=== PATIENT | male | born 1980 | race Caucasian/White ===

== ENCOUNTER 2017-05-22 09:16 | Emergency (ER) | payer BC ==
[2017-05-22] MEDS ORDERED: DEXAMETHASONE SOD PHOS INJ 10 MG/1 ML VIAL IM ONE (09:51)
--- NOTE | 2017-05-22 09:58 | ER Document Report ---
ED General - General Chief Complaint: Sore Throat Stated Complaint: DIFFICULTY SWALLOWING Time Seen by Provider: 05/22/17 09:36 Mode of Arrival: Ambulatory Information source: Patient Notes: 37 yr old male with hx of previous uvulitis presents with complaints of his uvula being swollen. Patient notes he woke this morning and noted that he was gagging on the uvula Patient denies any fevers or chills denies any difficulty breathing TRAVEL OUTSIDE OF THE [place] IN LAST 30 DAYS: No - HPI Onset: This morning Onset/Duration: Sudden Quality of pain: No pain Severity: Mild Pain Level: Denies Associated symptoms: Nausea, Vomiting - Only when his uvula goes backward Exacerbated by: Denies Relieved by: Denies Similar symptoms previously: Yes Recently seen / treated by doctor: Yes - Related Data Allergies/Adverse Reactions: No Known Allergies Allergy (Unverified 05/22/17 09:29) Past Medical History - Social History Smoking Status: Never Smoker Cigarette use (# per day): No Chew tobacco use (# tins/day): Yes Smoking Education Provided: No Frequency of alcohol use: Social Drug Abuse: None Family History: Reviewed & Not Pertinent Renal/ Medical History: Denies: Hx Peritoneal Dialysis Surgical Hx: Negative Review of Systems - Review of Systems Notes: REVIEW OF SYSTEMS: CONSTITUTIONAL : Denies fever, chills, or sweats. Denies recent illness. EENT: Admits to difficulty swallowing CARDIOVASCULAR: Denies chest pain. Denies palpitations or racing or irregular heart beat. Denies ankle edema. RESPIRATORY: Denies cough, cold, or chest congestion. Denies shortness of breath, difficulty breathing, or wheezing. GASTROINTESTINAL: Denies abdominal pain or distention. Denies nausea, vomiting , or diarrhea. Denies blood in vomitus, stools, or per rectum. Denies black, tarry stools. Denies constipation. GENITOURINARY: Denies difficulty urinating, painful urination, burning, frequency, blood in urine, or discharge. MUSCULOSKELETAL: Denies back or neck pain or stiffness. Denies joint pain or swelling. SKIN: Denies rash, lesions or sores. HEMATOLOGIC : Denies easy bruising or bleeding. LYMPHATIC: Denies swollen, enlarged glands. NEUROLOGICAL: Denies confusion or altered mental status. Denies passing out or loss of consciousness. Denies dizziness or lightheadedness. Denies headache. Denies weakness or paralysis or loss of use of either side. Denies problems with gait or speech. Denies sensory loss, numbness, or tingling. Denies seizures. PSYCHIATRIC: Denies anxiety or stress. Denies depression, suicidal ideation, or homicidal ideation. ALL OTHER SYSTEMS REVIEWED AND NEGATIVE. Dictation was performed using [employer] voice recognition software PHYSICAL EXAMINATION: GENERAL: Well-appearing, well-nourished and in no acute distress. HEAD: Atraumatic, normocephalic. EYES: Pupils equal round and reactive to light, extraocular movements intact, sclera anicteric, conjunctiva are normal. ENT: Nares patent, oropharynx clear without exudates. Moist mucous membranes. Uvula is enlarged airway is patent NECK: Normal range of motion, supple without lymphadenopathy LUNGS: Breath sounds clear to auscultation bilaterally and equal. No wheezes rales or rhonchi. HEART: Regular rate and rhythm without murmurs ABDOMEN: Soft, nontender, nondistended abdomen. No guarding, no rebound. No masses appreciated. Musculoskeletal: Normal range of motion, no pitting or edema. No cyanosis. NEUROLOGICAL: Cranial nerves grossly intact. Normal speech, normal gait. Normal sensory, motor exams PSYCH: Normal mood, normal affect. SKIN: Warm, Dry, normal turgor, no rashes or lesions noted. Physical Exam - Vital signs Vitals: Temp Pulse Resp BP Pulse Ox 98.4 F 127 H 20 132/116 H 97 05/22/17 09:28 05/22/17 09:28 05/22/17 09:28 05/22/17 09:28 05/22/17 09:28 Course - Re-evaluation Re-evalutation: 05/22/17 09:58 Patient will be treated for uvulitis, Decadron has been ordered - Vital Signs Vital signs: Temp Pulse Resp BP Pulse Ox 98.4 F 127 H 20 132/116 H 97 05/22/17 09:28 05/22/17 09:28 05/22/17 09:28 05/22/17 09:28 05/22/17 09:28 Discharge - Discharge Clinical Impression: Uvular edema Condition: Stable Disposition: HOME, SELF-CARE Instructions: Uvula Swelling ([facility]) Additional Instructions: Follow up with your physician tomorrow for further care or return to the ED IMMEDIATELY if symptoms worsen or new concerns occur. If you cannot afford to follow up with your primary care physician a list of low cost clinics have been provided at the end of your discharge papers as well. Prescriptions: Amoxicillin Trihydrate [Amoxil 875 mg Tablet] 1 tab PO BID #20 tablet Prednisone 60 mg PO DAILY 5 Days tablet
[2017-05-22 10:42] VITALS: BP 119/71
== END 2017-05-22 10:42 | disposition home or self-care (01) ==
LOC: ER 09:16
DX: K12.2 Cellulitis and abscess of mouth (principal); R11.2 Nausea with vomiting, unspecified; R13.10 Dysphagia, unspecified; Z87.19 Personal history of other diseases of the digestive system
CPT/HCPCS: 99282; 96372; J1100

== ENCOUNTER 2017-10-28 07:13 | Emergency (ER) | payer BC ==
[2017-10-28] MEDS ORDERED: CLINDAMYCIN 600 MG/D5W RTU 600 MG/50 ML RTUPB IV ONE (08:17)
[2017-10-28] MEDS ORDERED: DEXAMETHASONE SOD PHOS INJ 10 MG/1 ML VIAL IV ONE (08:17)
[2017-10-28] MEDS ORDERED: NORMAL SALINE 1000 ML 500 ML IV ONE (08:17)
[2017-10-28] MEDS ORDERED: MORPHINE SULFATE 10 MG/ML INJ IV ONE (08:17)
[2017-10-28 08:45] LABS: ABSOLUTE EOSINOPHILS # (AUTO) 0.1 10^3/uL (0.0-0.6); ABSOLUTE LYMPHOCYTES (AUTO) 1.5 10^3/uL (0.5-4.7); ABSOLUTE MONOCYTES (AUTO) 0.8 10^3/uL (0.1-1.4); ABSOLUTE NEUT (AUTO) 5.2 10^3/uL (1.7-8.2); BASOPHILS % (AUTO) 0.5 % (0-2); EOSINOPHILS % (AUTO) 1.7 % (0-6); HEMATOCRIT 49.1 % (37.9-51.0); HEMOGLOBIN 16.9 g/dL (13.5-17.0); LYMPHOCYTES % (AUTO) 19.7 % (13-45); MEAN CORPUSCULAR HEMOGLOBIN 30.7 pg (27.0-33.4); MEAN CORPUSCULAR HGB CONC 34.5 g/dL (32.0-36.0); MEAN CORPUSCULAR VOLUME 89 fl (80-97); MONOCYTES % (AUTO) 10.8 % (3-13); PLATELET COUNT 170 10^3/uL (150-450); RED BLOOD COUNT 5.52 10^6/uL (4.35-5.55); RED CELL DISTRIBUTION WIDTH 12.6 % (11.5-14.0); SEGMENTED NEUTROPHILS % (AUTO) 67.3 % (42-78); TOTAL CELLS COUNTED % (AUTO) 100 %; WHITE BLOOD COUNT 7.7 10^3/uL (4.0-10.5)
[2017-10-28 09:02] LABS: ANION GAP 11 (5-19); BLOOD UREA NITROGEN 17 mg/dL (7-20); CALCIUM 9.7 mg/dL (8.4-10.2); CARBON DIOXIDE 25 mmol/L (22-30); CHLORIDE 104 mmol/L (98-107); GLUCOSE 97 mg/dL (75-110); POTASSIUM 4.5 mmol/L (3.6-5.0)
--- NOTE | 2017-10-28 09:26 | RADIOLOGY REPORT (SQ) ---
EXAM DESCRIPTION: CT SOFT TISSUE NECK WITH COMPLETED DATE/TIME: 10/28/2017 9:10 am REASON FOR STUDY: right sided tonsilar swelling, difficulty swallowi COMPARISON: None. TECHNIQUE: Post IV contrasted scanning from skull base through lung apices with review of bone, soft tissue and lung windows. Reconstructed coronal and sagittal MPR images reviewed. All images stored on PACS. All CT scanners at this facility use dose modulation, iterative reconstruction, and/or weight based d osing when appropriate to reduce radiation dose to as low as reasonably achievable (ALARA). [facility]: Dose Right [facility]: CareDose [facility]: Dose Right [facility]: Teradose 4D [facility]: [employer] CONTRAST TYPE AND DOSE: contrast/concentration: Isovue 370.00 mg/ml; Total Contrast Delivered: 75.0 ml; Total Saline Delivered: 55.0 ml RENAL FUNCTION: None required. The patient is less than 50 years old. RADIATION DOSE: CT Rad equipment meets quality standard of care and radiation dose reduction techniq ues were employed. CTDIvol: 14.9 mGy. DLP: 434 mGy-cm. . LIMITATIONS: None. FINDINGS: Bilateral pharyngeal tonsils are enlarged, and heterogeneous in signal right greater than left. Although there is no well-circumscribed intra tonsillar or peritonsillar abscess, there is ext ensive inflammation in the right parapharyngeal fat extending from the tonsillar fossa into the supra glottic larynx, with swelling of the right area epiglottic fold, obliteration of the right piriform r ecess, and about 50% diameter narrowing of the supraglottic larynx. Findings likely represent acute tonsillar and peritonsillar inflammation/infection. Findings discussed with Minal Somers PA-C in the emergency room, 0915 hours 10/28/2017. SKULL BASE: Inferior brain parenchyma in the field of view unremarkable. MAJOR SALIVARY GLANDS: No solid or cystic masses. No inflammatory changes. LYMPHADENOPATHY: There is mild right-sided cervical adenopathy along the carotid space, right submand ibular region and right posterior triangle MUCOSAL MASSES OR ASYMMETRY: As above LARYNX/CORDS: As above VASCULAR STRUCTURES: The major vessels are patent. LUNG APICES: Clear. BONES: Intact. THYROID: Normal size. No masses. PARANASAL SINUSES: Diffuse inflammation with mucous membrane thickening in the visualized frontal and ethmoid air cells, and bulky mucous membrane thickening in the bilateral maxillary sinuses. Sphenoi d sinuses, mastoid air cells are clear. OTHER: No other significant finding. IMPRESSION: Bilateral pharyngeal tonsillar enlargement and inflammation right greater than left. Ex tensive right peritonsillar inflammation in the parapharyngeal fat extending from the tonsillar fossa into the supraglottic larynx with about 50% diameter airway narrowing in the supraglottic larynx. N o well-circumscribed intra tonsillar or peritonsillar abscess. COMMENT: Pertinent findings on the imaging study reported as a CRITICAL RESULT to JEAN MARIE GASCA PPI at09:15 on 10/28/2017. Category of Critical Result: Right peritonsillar inflammatory change with extension into the supraglo ttic larynx and about 50% diameter supraglottic larynx airway narrowing TECHNICAL DOCUMENTATION: JOB ID: [id number] Quality ID # [id number]: Final reports with documentation of one or more dose reduction techniques (e.g., Au tomated exposure control, adjustment of the mA and/or kV according to patient size, use of iterative reconstruction technique) 2010 [employer]- All Rights Reserved Reading location - IP/workstation name: [email or web address]
[2017-10-28] MEDS ORDERED: DIPHENHYDRAMINE HCL 25 MG/10 ML UDC PO ONE (09:32)
[2017-10-28] MEDS ORDERED: DEXAMETHASONE CONC 1 MG/ML SOLN PO ONE (09:32)
[2017-10-28] MEDS ORDERED: KETOROLAC TROMETHAMINE INJ/PF 30 MG/1 ML SDV IV ONE (09:32)
[2017-10-28] MEDS ORDERED: LIDOCAINE 2% VISCOUS SOLN 20 ML UDCUP PO ONE (09:32)
[2017-10-28] MEDS ORDERED: DEXAMETHASONE CONC 1 MG/ML SOLN ONE (09:56)
--- NOTE | 2017-10-28 09:59 | ER Document Report ---
ED ENT - General Chief Complaint: Sore Throat Stated Complaint: BREATHING PROBLEMS Time Seen by Provider: 10/28/17 08:05 Mode of Arrival: Ambulatory Information source: Patient Notes: Patient is a 37-year-old male who presents to the ER today for sore throat, feeling of swelling to the right side of his throat that started 2 days ago. Patient went to the urgent care yesterday and he states that strep was negative but they started him on amoxicillin anyway. Patient states the swelling and pain of gotten worse and feels more swollen on the right side than the left. He denies any fevers or chills that he is noticed but states it is very hard to swallow. He denies any difficulty breathing. TRAVEL OUTSIDE OF THE [place] IN LAST 30 DAYS: No - Related Data Allergies/Adverse Reactions: No Known Allergies Allergy (Verified 10/28/17 07:27) Past Medical History - General Information source: Patient - Social History Smoking Status: Former Smoker Chew tobacco use (# tins/day): No Frequency of alcohol use: Occasional Drug Abuse: None Family History: Reviewed & Not Pertinent Patient has suicidal ideation: No Patient has homicidal ideation: No Renal/ Medical History: Denies: Hx Peritoneal Dialysis Review of Systems - Review of Systems Constitutional: No symptoms reported EENT: See HPI Cardiovascular: No symptoms reported Respiratory: No symptoms reported Gastrointestinal: No symptoms reported Genitourinary: No symptoms reported Male Genitourinary: No symptoms reported Musculoskeletal: No symptoms reported Skin: No symptoms reported Hematologic/Lymphatic: No symptoms reported Neurological/Psychological: No symptoms reported Physical Exam - Vital signs Vitals: Temp Pulse Resp BP Pulse Ox 99.1 F 122 H 18 128/75 H 94 10/28/17 07:28 10/28/17 07:28 10/28/17 07:28 10/28/17 07:28 10/28/17 07:28 - Notes Notes: PHYSICAL EXAMINATION: GENERAL: Uncomfortable appearing, but in no acute distress. HEAD: Atraumatic, normocephalic. EYES: Pupils equal round and reactive to light, extraocular movements intact, sclera anicteric, conjunctiva are normal. ENT: ear canals without erythema or foreign body, TMs pearly padilla with good bony landmarks, nares patent, oropharynx mildly erythematous with bilaterally enlarged tonsils, right greater than left, uvula midline, without exudates. Moist mucous membranes. NECK: Normal range of motion, supple without lymphadenopathy LUNGS: CTAB and equal. No wheezes rales or rhonchi. HEART: Regular rate and rhythm without murmurs EXTREMITIES: Normal range of motion, no pitting edema. No cyanosis. NEUROLOGICAL: Cranial nerves grossly intact. Normal sensory/motor exams. PSYCH: Normal mood, normal affect. SKIN: Warm, Dry, normal turgor, no rashes or lesions noted Course - Re-evaluation Re-evalutation: 10/28/17 09:58 Vitals are stable, patient getting IV fluids, clindamycin, Decadron IV, CAT scan with IV contrast of the soft tissues of the neck reports inflammation to the bilateral tonsils, worse on the right extending into the supraglottic airway with 50% narrowing above the supraglottic airway. Patient is in no distress, oxygenation normal on room air at this time. Patient not having any difficulty swallowing. Dr. West, ENT with [facility] was consulted with and advises to send home with clindamycin if mono negative and steroids. 10/28/17 11:02 Strep and mono were both negative today. We will send him home with clindamycin and steroid Dosepak. We will give him air nose and throat information to follow-up with. - Vital Signs Vital signs: Temp Pulse Resp BP Pulse Ox 99.1 F 122 H 18 128/75 H 94 10/28/17 07:28 10/28/17 07:28 10/28/17 07:28 10/28/17 07:28 10/28/17 07:28 - Laboratory Result Diagrams: 10/28/17 08:30 10/28/17 08:30 Discharge - Discharge Clinical Impression: Acute erythematous tonsillitis Condition: Stable Disposition: HOME, SELF-CARE Instructions: Tonsillitis ([facility]) Additional Instructions: Return immediately for any new or worsening symptoms. Follow up with ENT, call tomorrow to make followup appointment. Prescriptions: Clindamycin HCl 300 mg PO TID #30 capsule Methylprednisolone [Medrol Dosepack (4 mg/Tab) 21 Tab/Dosepak] 4 mg PO ASDIR PRN #21 tab.ds.pk PRN Reason: Nystatin/Dexameth/Diphen [Magic Mouthwash ([facility] Formula) Susp] 5 ml PO QID #120 ml Forms: Return to Work Referrals: ANNELISE MADDEN DO [ASSOCIATE] - Follow up as needed
[2017-10-28 11:37] VITALS: BP 119/86
== END 2017-10-28 11:15 | disposition home or self-care (01) ==
LOC: ER 07:13
DX: J03.90 Acute tonsillitis, unspecified (principal); Z87.891 Personal history of nicotine dependence
CPT/HCPCS: 99284; 96375; 96365; 36415; 87040; 87070; 87880; 85025; 86308; 80048; 70491; J3490 ×2; J1885; J2270; J7030; J1100; J8540

== ENCOUNTER 2017-11-01 11:05 | Emergency (ER) | payer BC ==
[2017-11-01] MEDS ORDERED: RACEPINEPHRINE HCL 2.25% NEB 0.5 ML AMPUL NEB ONE (11:20)
[2017-11-01] MEDS ORDERED: METHYLPREDNISOLONE INJ 125 MG/2 ML SDV IV ONE (11:20)
--- NOTE | 2017-11-01 11:22 | ER Document Report ---
ED Medical Screen (RME) - General Chief Complaint: Difficulty Swallowing Stated Complaint: THROAT PAIN Time Seen by Provider: 11/01/17 11:15 Notes: 37-year-old male patient seen here on 10/28/2017 with pharyngitis and tonsillitis. CT scan showed considerable swelling in the right tonsillar region extending down toward the vocal cord. Patient has been on clindamycin and a Medrol Dosepak. He states that he has not really improved any and over the past 1-2 days has started coughing and wheezing which is a new thing. I have greeted and performed a rapid initial assessment of this patient. A comprehensive ED assessment and evaluation of the patient, analysis of test results and completion of the medical decision making process will be conducted by additional ED providers. TRAVEL OUTSIDE OF THE [place] IN LAST 30 DAYS: No - Related Data Allergies/Adverse Reactions: No Known Allergies Allergy (Verified 11/01/17 11:07) Past Medical History - Social History Frequency of alcohol use: None Drug Abuse: None Renal/ Medical History: Denies: Hx Peritoneal Dialysis Physical Exam - Vital signs Vitals: Temp Pulse Resp BP Pulse Ox 98.4 F 111 H 16 139/94 H 97 11/01/17 11:10 11/01/17 11:10 11/01/17 11:10 11/01/17 11:10 11/01/17 11:10 Course - Vital Signs Vital signs: Temp Pulse Resp BP Pulse Ox 98.4 F 111 H 16 139/94 H 97 11/01/17 11:10 11/01/17 11:10 11/01/17 11:10 11/01/17 11:10 11/01/17 11:10
[2017-11-01 11:50] LABS: ABSOLUTE LYMPHOCYTES (AUTO) 1.4 10^3/uL (0.5-4.7); ABSOLUTE MONOCYTES (AUTO) 0.8 10^3/uL (0.1-1.4); BASOPHILS % (AUTO) 0.5 % (0-2); EOSINOPHILS % (AUTO) 0.3 % (0-6); HEMOGLOBIN 16.5 g/dL (13.5-17.0); LYMPHOCYTES % (AUTO) 19.2 % (13-45); MEAN CORPUSCULAR HEMOGLOBIN 30.5 pg (27.0-33.4); MEAN CORPUSCULAR HGB CONC 34.3 g/dL (32.0-36.0); MEAN CORPUSCULAR VOLUME 89 fl (80-97); MONOCYTES % (AUTO) 10.7 % (3-13); PLATELET COUNT 186 10^3/uL (150-450); RED BLOOD COUNT 5.41 10^6/uL (4.35-5.55); RED CELL DISTRIBUTION WIDTH 12.8 % (11.5-14.0); SEGMENTED NEUTROPHILS % (AUTO) 69.3 % (42-78); TOTAL CELLS COUNTED % (AUTO) 100 %; WHITE BLOOD COUNT 7.2 10^3/uL (4.0-10.5)
[2017-11-01 12:12] LABS: ALANINE AMINOTRANSFERASE 37 U/L (21-72); ALBUMIN 4.4 g/dL (3.5-5.0); ALKALINE PHOSPHATASE 89 U/L (38-126); ANION GAP 11 (5-19); ASPARTATE AMINO TRANSFERASE 29 U/L (17-59); BILIRUBIN,DIRECT 0.4 mg/dL (0.0-0.4); BILIRUBIN,TOTAL 0.4 mg/dL (0.2-1.3); BLOOD UREA NITROGEN 16 mg/dL (7-20); CALCIUM 9.6 mg/dL (8.4-10.2); CARBON DIOXIDE 27 mmol/L (22-30); CHLORIDE 106 mmol/L (98-107); GLUCOSE 122 mg/dL (75-110); POTASSIUM 3.6 mmol/L (3.6-5.0); SODIUM 144.4 mmol/L (137-145); TOTAL PROTEIN 7.8 g/dL (6.3-8.2)
[2017-11-01] MEDS ORDERED: HYDROCODONE BIT/HOMATROPINE SYRUP 5 ML UDCUP PO ONE (13:44)
[2017-11-01] MEDS ORDERED: NORMAL SALINE 1000 ML 1,000 ML IV ONE (13:44)
--- NOTE | 2017-11-01 13:58 | RADIOLOGY REPORT (SQ) ---
EXAM DESCRIPTION: CT SOFT TISSUE NECK WITH COMPLETED DATE/TIME: 11/01/2017 1:29 pm REASON FOR STUDY: throat swelling COMPARISON: 10/28/2017 CT soft tissue neck TECHNIQUE: Post IV contrasted scanning from skull base through lung apices with review of bone, soft tissue and lung windows. Reconstructed coronal and sagittal MPR images reviewed. All images stored on PACS. All CT scanners at this facility use dose modulation, iterative reconstruction, and/or weight based d osing when appropriate to reduce radiation dose to as low as reasonably achievable (ALARA). [facility]: Dose Right [facility]: CareDose [facility]: Dose Right [facility]: Teradose 4D [facility]: [employer] CONTRAST TYPE AND DOSE: contrast/concentration: Isovue 370.00 mg/ml; Total Contrast Delivered: 75.0 ml; Total Saline Delivered: 40.0 ml RENAL FUNCTION: None required. The patient is less than 50 years old. RADIATION DOSE: CT Rad equipment meets quality standard of care and radiation dose reduction techniq ues were employed. CTDIvol: 15.4 mGy. DLP: 566 mGy-cm. . LIMITATIONS: None. FINDINGS: Again, the right pharyngeal tonsil is enlarged. Along the deep aspect bordering the parap haryngeal fat, an ill-defined phlegmon is present, measuring about 2 x 2 cm on axial image 51. A wel l-circumscribed parapharyngeal abscess is not identified. No airway compromise. At the bottom edge of the field of view, dense pneumonia is present in the visualized right upper lob e. Follow-up two-view chest film is recommended. Aspiration pneumonia should be considered. SKULL BASE: Inferior brain parenchyma in the field of view is unremarkable MAJOR SALIVARY GLANDS: No solid or cystic masses. No inflammatory changes. LYMPHADENOPATHY: Few mildly enlarged lymph nodes are present in the right carotid space region likely reactive. No supportive lymph nodes are identified. Adenopathy is similar compared to 10/28/2017. MUCOSAL MASSES OR ASYMMETRY: Asymmetric mild enlargement of the right pharyngeal tonsil without airwa y compromise. Remainder of mucosal structures are otherwise unremarkable LARYNX/CORDS: No abnormal findings. VASCULAR STRUCTURES: The major vessels are patent. BONES: Intact. THYROID: Normal size. No masses. PARANASAL SINUSES: There is opacification of the left maxillary sinus with a mucous or serous retenti on cyst, and fluid in the right maxillary sinus from sinusitis OTHER: Results discussed with Dr. Henning IMPRESSION: Slight min in the right parapharyngeal space/deep aspect right pharyngeal tonsil without well-circumscribed abscess. No airway compromise. Dense pneumonia in the right upper lobe. Follow-up two-view chest film recommended TECHNICAL DOCUMENTATION: JOB ID: [id number] Quality ID # [id number]: Final reports with documentation of one or more dose reduction techniques (e.g., Au tomated exposure control, adjustment of the mA and/or kV according to patient size, use of iterative reconstruction technique) 2010 [employer]- All Rights Reserved Reading location - IP/workstation name: [email or web address]
[2017-11-01] MEDS ORDERED: LEVOFLOXACIN 500 MG/D5W RTU 500 MG/100 ML RTUPB IV ONE (14:03)
--- NOTE | 2017-11-01 14:04 | ER Document Report ---
ED General - General Chief Complaint: Difficulty Swallowing Stated Complaint: THROAT PAIN Time Seen by Provider: 11/01/17 11:15 Mode of Arrival: Ambulatory Information source: Patient, [facility] Records Notes: 37-year-old male presents with complaints of of sore throat now 1 week duration. She was seen at an urgent care on 26 October, was started on amoxicillin. Patient notes he was seen here 2 days later started on clindamycin steroids and notes symptoms have not improved. He states that he did not seem to have worsened but now he has a cough as well. Patient denies any fevers or chills TRAVEL OUTSIDE OF THE [place] IN LAST 30 DAYS: No - HPI Onset: Last week Onset/Duration: Persistent Quality of pain: Achy Severity: Mild Pain Level: 1 Associated symptoms: Nonproductive cough, Productive cough, Sore throat Exacerbated by: Food Relieved by: Denies Similar symptoms previously: Yes Recently seen / treated by doctor: Yes - Related Data Allergies/Adverse Reactions: No Known Allergies Allergy (Verified 11/01/17 11:07) Past Medical History - Social History Smoking Status: Current Some Day Smoker Cigarette use (# per day): Yes Chew tobacco use (# tins/day): No Smoking Education Provided: No Frequency of alcohol use: None Drug Abuse: None Family History: Reviewed & Not Pertinent Patient has suicidal ideation: No Patient has homicidal ideation: No Renal/ Medical History: Denies: Hx Peritoneal Dialysis Review of Systems - Review of Systems Notes: REVIEW OF SYSTEMS: CONSTITUTIONAL : Denies fever, chills, or sweats. Denies recent illness. EENT: Admits to sore throat CARDIOVASCULAR: Denies chest pain. Denies palpitations or racing or irregular heart beat. Denies ankle edema. RESPIRATORY: Admits to cough congestion GASTROINTESTINAL: Denies abdominal pain or distention. Denies nausea, vomiting , or diarrhea. Denies blood in vomitus, stools, or per rectum. Denies black, tarry stools. Denies constipation. GENITOURINARY: Denies difficulty urinating, painful urination, burning, frequency, blood in urine, or discharge. MUSCULOSKELETAL: Denies back or neck pain or stiffness. Denies joint pain or swelling. SKIN: Denies rash, lesions or sores. HEMATOLOGIC : Denies easy bruising or bleeding. LYMPHATIC: Denies swollen, enlarged glands. NEUROLOGICAL: Denies confusion or altered mental status. Denies passing out or loss of consciousness. Denies dizziness or lightheadedness. Denies headache. Denies weakness or paralysis or loss of use of either side. Denies problems with gait or speech. Denies sensory loss, numbness, or tingling. Denies seizures. PSYCHIATRIC: Denies anxiety or stress. Denies depression, suicidal ideation, or homicidal ideation. ALL OTHER SYSTEMS REVIEWED AND NEGATIVE. Dictation was performed using [employer] voice recognition software PHYSICAL EXAMINATION: GENERAL: Well-appearing, well-nourished and in no acute distress. HEAD: Atraumatic, normocephalic. EYES: Pupils equal round and reactive to light, extraocular movements intact, sclera anicteric, conjunctiva are normal. ENT: Nares patent, oropharynx clear without exudates. Moist mucous membranes. Slight right-sided enlargement of the tonsil in comparison to the left NECK: Normal range of motion, supple without lymphadenopathy LUNGS: Crackles right upper lobe HEART: Regular rate and rhythm without murmurs ABDOMEN: Soft, nontender, nondistended abdomen. No guarding, no rebound. No masses appreciated. Musculoskeletal: Normal range of motion, no pitting or edema. No cyanosis. NEUROLOGICAL: Cranial nerves grossly intact. Normal speech, normal gait. Normal sensory, motor exams PSYCH: Normal mood, normal affect. SKIN: Warm, Dry, normal turgor, no rashes or lesions noted. Physical Exam - Vital signs Vitals: Temp Pulse Resp BP Pulse Ox 98.4 F 111 H 16 139/94 H 97 11/01/17 11:10 11/01/17 11:10 11/01/17 11:10 11/01/17 11:10 11/01/17 11:10 Course - Re-evaluation Re-evalutation: CT is concerning for pneumonia and peritonsillar phlegmon patient will be started on antibiotics given IV fluids 11/01/17 14:04 Dr Karla gaytan 11/01/17 14:58 dr Gumaro gaytan for the 3rd time 11/01/17 15:48 Dr Naik notes that he will call patient for follow up, requests unasyn, augmentin and prednisone , pt is happy with this plan . 11/01/17 16:00 After performing a Medical Screening Examination, I estimate there is LOW risk for CENTRAL CORD SYNDROME, LUDWIGS ANGINA, PERITONSILLAR ABSCESS, RETROPHARYNGEAL ABSCESS, EPIDURAL MASS LESION, SEVERE SPINAL STENOSIS, ARTERIAL DISSECTION, MENINGITIS, or ACUTE CORONARY SYNDROME, thus I consider the discharge disposition reasonable. I have reevaluated this patient multiple times and no significant life threatening changes are noted. The patient and I have discussed the diagnosis and risks, and we agree with discharging home to follow-up on an outpatient basis with the understanding that symptoms and presentations can change. We also discussed returning to the Emergency Department immediately if new or worsening symptoms occur. We have discussed the symptoms which are most concerning (e.g., saddle anesthesia, urinary or bowel incontinence or retention, changing or worsening pain) that necessitate immediate return. - Vital Signs Vital signs: Temp Pulse Resp BP Pulse Ox 98.4 F 111 H 16 139/94 H 97 11/01/17 11:10 11/01/17 11:10 11/01/17 11:10 11/01/17 11:10 11/01/17 11:10 - Laboratory Result Diagrams: 11/01/17 11:36 11/01/17 11:36 Laboratory results interpreted by me: 11/01/17 11:36 Glucose 122 H - Diagnostic Test Radiology reviewed: Image reviewed - Phlegmon noted, Reports reviewed Discharge - Discharge Clinical Impression: Tonsillar enlargement Pneumonia Qualifiers: Pneumonia type: due to unspecified organism Laterality: right Lung location: upper lobe of lung Qualified Code(s): J18.1 - Lobar pneumonia, unspecified organism Condition: Stable Disposition: HOME, SELF-CARE Prescriptions: Hydrocodone Bit/Homatropine [Hycodan Syrup 5-1.5 mg/5 ml Ud Cup] 5 ml PO Q4HP PRN #120 ml PRN Reason: Amox Tr/Potassium Clavulanate [Augmentin 875-125 Tablet] 1 tab PO BID 14 Days tablet Levofloxacin [Levaquin 750 mg Tablet] 750 mg PO DAILY #5 tablet Prednisone [Deltasone 20 mg Tablet] 3 tab PO DAILY 5 Days tablet Forms: Return to Work Referrals: ANNELISE MADDEN DO [ASSOCIATE] - Follow up tomorrow
[2017-11-01] MEDS ORDERED: HYDROCODONE BIT/HOMATROPINE 5-1.5 MG TABLET PO ONE (14:23)
--- NOTE | 2017-11-01 14:40 | RADIOLOGY REPORT (SQ) ---
EXAM DESCRIPTION: CHEST 2 VIEWS COMPLETED DATE/TIME: 11/01/2017 2:18 pm REASON FOR STUDY: cough COMPARISON: None. EXAM PARAMETERS: NUMBER OF VIEWS: two views TECHNIQUE: Digital Frontal and Lateral radiographic views of the chest acquired. RADIATION DOSE: NA LIMITATIONS: none FINDINGS: LUNGS AND PLEURA: There appears to be a limited infiltrate in the right middle lobe. Vaughn ot exclude right perihilar mass. MEDIASTINUM AND HILAR STRUCTURES: No masses or contour abnormalities. HEART AND VASCULAR STRUCTURES: Heart normal size. No evidence for failure. BONES: No acute findings. HARDWARE: None in the chest. OTHER: No other significant finding. IMPRESSION: Possible right perihilar mass. Right middle lobe infiltrate. TECHNICAL DOCUMENTATION: JOB ID: [id number] [employer]- All Rights Reserved Reading location - IP/workstation name: [email or web address]
[2017-11-01] MEDS ORDERED: AMPICILLIN SOD/SULBACTAM 3 GM VIAL IV ONE (15:37)
[2017-11-01] MEDS ORDERED: DIPHENHYDRAMINE HCL 50 MG/ML VIAL IV ONE (17:08)
[2017-11-01 17:44] VITALS: BP 145/76
== END 2017-11-01 17:44 | disposition home or self-care (01) ==
LOC: ER 11:05
DX: J18.1 Lobar pneumonia, unspecified organism (principal); J35.1 Hypertrophy of tonsils; R13.10 Dysphagia, unspecified; J02.9 Acute pharyngitis, unspecified; R05 Cough; F17.210 Nicotine dependence, cigarettes, uncomplicated
CPT/HCPCS: 94640; 99284; 96361; 96375; 96365; 96367; 36415; 87040; 85025; 80053; 71046; 70491; J1956; J1200; J0295; J2930; J7030; J3490